=== PATIENT | female | born 1990 | race Caucasian/White ===

== ENCOUNTER 2019-01-18 14:12 | Emergency (ER) | payer BC, OTHER ==
[2019-01-18 14:25] VITALS: BP 143/91
--- NOTE | 2019-01-18 15:15 | ER Document Report ---
ED Medical Screen (RME) - General Chief Complaint: Suicidal Ideation Stated Complaint: SUICIDAL IDEATION Time Seen by Provider: 01/18/19 15:12 Mode of Arrival: Ambulatory Information source: Patient Notes: 28-year-old female presented to ED for suicidal thoughts and started having a plan at midnight last night. She states she was planning to cut her wrist. She states she has had thoughts of suicide since she was 17. She is alert oriented respirations regular and unlabored at this time. She does have a history of high blood pressure and migraines. She denies smoking drinking or use of drugs and she lives with her family. She is accompanied by mobile crisis. I have greeted and performed a rapid initial assessment of this patient. A comprehensive ED assessment and evaluation of the patient, analysis of test results and completion of medical decision making process will be conducted by an additional ED providers. - Related Data Allergies/Adverse Reactions: No Known Allergies Allergy (Verified 01/18/19 15:11) Past Medical History - Past Medical History Cardiac Medical History: Reports: Hx Hypertension Neurological Medical History: Reports: Hx Migraine Renal/ Medical History: Reports: Hx Ovarian Cysts. Denies: Hx Peritoneal Dialysis Psychiatric Medical History: Reports: Hx Anxiety, Hx Depression, Hx Post Traumatic Stress Disorder Past Surgical History: Reports: Hx Orthopedic Surgery - back fracture Physical Exam - Vital signs Vitals: Temp Pulse Resp BP Pulse Ox 98.5 F 90 18 143/91 H 98 01/18/19 14:24 01/18/19 14:24 01/18/19 14:24 01/18/19 14:24 01/18/19 14:24 Course - Vital Signs Vital signs: Temp Pulse Resp BP Pulse Ox 98.5 F 90 18 143/91 H 98 01/18/19 14:24 01/18/19 14:24 01/18/19 14:24 01/18/19 14:24 01/18/19 14:24
[2019-01-18 16:42] LABS: ABSOLUTE EOSINOPHILS # (AUTO) 0.1 10^3/uL (0.0-0.6); ABSOLUTE LYMPHOCYTES (AUTO) 2.6 10^3/uL (0.5-4.7); ABSOLUTE MONOCYTES (AUTO) 0.5 10^3/uL (0.1-1.4); ABSOLUTE NEUT (AUTO) 2.7 10^3/uL (1.7-8.2); BASOPHILS % (AUTO) 0.6 % (0-2); EOSINOPHILS % (AUTO) 1.6 % (0-6); HEMATOCRIT 43.4 % (36.0-47.0); HEMOGLOBIN 14.7 g/dL (12.0-15.5); LYMPHOCYTES % (AUTO) 43.8 % (13-45); MEAN CORPUSCULAR HEMOGLOBIN 28.9 pg (27.0-33.4); MEAN CORPUSCULAR VOLUME 85 fl (80-97); MONOCYTES % (AUTO) 8.6 % (3-13); PLATELET COUNT 273 10^3/uL (150-450); RED CELL DISTRIBUTION WIDTH 13.9 % (11.5-14.0); SEGMENTED NEUTROPHILS % (AUTO) 45.4 % (42-78); TOTAL CELLS COUNTED % (AUTO) 100 %
[2019-01-18 17:01] LABS: APPEARANCE,URINE SLIGHTLY-CLOUDY; BILIRUBIN,URINE NEGATIVE (NEGATIVE); COLOR,URINE YELLOW; GLUCOSE, URINE NEGATIVE (NEGATIVE); KETONES,URINE NEGATIVE (NEGATIVE); LEUKOCYTE ESTERASE,URINE TRACE (NEGATIVE); NITRITE,URINE NEGATIVE (NEGATIVE); PROTEIN,URINE 100 mg/dL (NEGATIVE); URINE SPECIFIC GRAVITY 1.025
[2019-01-18 17:03] LABS: ALBUMIN 4.2 g/dL (3.5-5.0); ALKALINE PHOSPHATASE 71 U/L (38-126); ANION GAP 10 (5-19); ASPARTATE AMINO TRANSFERASE 33 U/L (14-36); BILIRUBIN,DIRECT 0.1 mg/dL (0.0-0.4); BILIRUBIN,TOTAL 0.9 mg/dL (0.2-1.3); BLOOD UREA NITROGEN 12 mg/dL (7-20); CALCIUM 9.5 mg/dL (8.4-10.2); CARBON DIOXIDE 31 mmol/L (22-30); CHLORIDE 97 mmol/L (98-107); GLUCOSE 98 mg/dL (75-110); POTASSIUM 3.1 mmol/L (3.6-5.0)
[2019-01-18 17:04] LABS: ACETAMINOPHEN < 10 ug/mL (10-30); ALCOHOL < 10 mg/dL (NONE DETECTED); SALICYLATE < 1.0 mg/dL (2.0-20.0)
[2019-01-18 17:14] LABS: URINE AMPHETAMINES SCREEN NEGATIVE; URINE BARBITURATES SCREEN NEGATIVE; URINE BENZODIAZEPINES SCREEN NEGATIVE; URINE COCAINE SCREEN NEGATIVE; URINE MARIJUANA (THC) SCREEN NEGATIVE; URINE METHADONE SCREEN NEGATIVE; URINE PHENCYCLIDINE SCREEN NEGATIVE
[2019-01-18] MEDS ORDERED: DIPH/PERTUSS(ACELL)/TETANUS VAC/PF 0.5 ML SYR (>=10YO) IM ONE (17:22)
--- NOTE | 2019-01-18 23:18 | EKG REPORT ---
SEVERITY:- NORMAL ECG - SINUS RHYTHM : Confirmed by: Nancy Sam MD 18-Jan-2019 23:17:41
--- NOTE | 2019-01-19 00:18 | ER Document Report ---
Entered by CHAVA ROJAS SCRIBE 01/18/19 [id number] Acting as scribe for:KISHAN VASQUEZ, DO ED Psych Disorder / Suicide <MARY ALICE BELLA - Last Filed: 01/18/19 17:35> - General Mode of Arrival: Ambulatory Information source: Patient TRAVEL OUTSIDE OF THE [place] IN LAST 30 DAYS: No <KISHAN VASQUEZ - Last Filed: 01/19/19 00:18> - General Chief Complaint: Suicidal Ideation Stated Complaint: SUICIDAL IDEATION Time Seen by Provider: 01/18/19 15:12 Primary Care Provider: [facility] [Outside] - Follow up as needed Notes: Patient is a 28-year-old female who presents to the emergency department today with complaints of suicidal ideation. 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 Patient has multiple superficial self-inflicted lacerations to her left wrist. Patient states she has been admitted in the past for suicidal ideation. Patient states her last tetanus shot was about 10 years ago. (KISHAN VASQUEZ) - Related Data Allergies/Adverse Reactions: No Known Allergies Allergy (Verified 01/18/19 15:11) Past Medical History - General Information source: Patient - Social History Smoking Status: Never Smoker Cigarette use (# per day): No Chew tobacco use (# tins/day): No Frequency of alcohol use: None Drug Abuse: None Lives with: Family Family History: Reviewed & Not Pertinent Patient has suicidal ideation: Yes Patient has homicidal ideation: No - Past Medical History Cardiac Medical History: Reports: Hx Hypertension Neurological Medical History: Reports: Hx Migraine Renal/ Medical History: Reports: Hx Ovarian Cysts Psychiatric Medical History: Reports: Hx Anxiety, Hx Depression, Hx Post Traumatic Stress Disorder Past Surgical History: Reports: Hx Orthopedic Surgery - back fracture <KISHAN VASQUEZ - Last Filed: 01/19/19 00:18> Review of Systems - Review of Systems Constitutional: No symptoms reported EENT: No symptoms reported Cardiovascular: No symptoms reported Respiratory: No symptoms reported Gastrointestinal: No symptoms reported Genitourinary: No symptoms reported Female Genitourinary: No symptoms reported Musculoskeletal: No symptoms reported Skin: See HPI, Other - superficial lacerations to left wrist Hematologic/Lymphatic: No symptoms reported Neurological/Psychological: See HPI, Suicidal ideation -: Yes All other systems reviewed and negative <KISHAN VASQUEZ - Last Filed: 01/19/19 00:18> Physical Exam - Vital signs Interpretation: Normal - General General appearance: Appears well, Alert - HEENT Head: Normocephalic, Atraumatic Eyes: Normal Pupils: PERRL - Respiratory Respiratory status: No respiratory distress Chest status: Nontender Breath sounds: Normal Chest palpation: Normal - Cardiovascular Rhythm: Regular Heart sounds: Normal auscultation Murmur: No - Abdominal Inspection: Normal Distension: No distension Bowel sounds: Normal Tenderness: Nontender Organomegaly: No organomegaly - Back Back: Normal, Nontender - Extremities General upper extremity: Nontender, Normal color, Normal ROM, Normal temperature General lower extremity: Normal inspection, Nontender, Normal color, Normal ROM, Normal temperature, Normal weight bearing. No: Ludmila's sign Shoulder: Normal Arm: Normal Elbow: Normal Forearm: Laceration, Other - Multiple superficial lacerations in linear pattern horizontally to left forearm - Neurological Neuro grossly intact: Yes Cognition: Normal Orientation: AAOx4 Hanson Coma Scale Eye Opening: Spontaneous Edin Coma Scale Verbal: Oriented Edin Coma Scale Motor: Obeys Commands Hanson Coma Scale Total: 15 Speech: Normal Motor strength normal: LUE, RUE, LLE, RLE Sensory: Normal - Psychological Associated symptoms: Flat affect - Skin Skin Temperature: Warm Skin Moisture: Dry Skin Color: Normal <KISHAN VASQUEZ - Last Filed: 01/19/19 00:18> - Vital signs Vitals: Temp Pulse Resp BP Pulse Ox 98.5 F 90 18 143/91 H 98 01/18/19 14:24 01/18/19 14:24 01/18/19 14:24 01/18/19 14:24 01/18/19 14:24 Course - Laboratory Result Diagrams: 01/18/19 16:15 01/18/19 16:15 <MARY ALICE EBLLA - Last Filed: 01/18/19 17:35> - Laboratory Result Diagrams: 01/18/19 16:15 01/18/19 16:15 <KISHAN VASQUEZ - Last Filed: 01/19/19 00:18> - Re-evaluation Re-evalutation: 01/18 Patient is a 28-year-old female with a history of depression and suicidal ideation who comes in today with suicidal ideation and self-inflicted lacera tions to her left forearm. Blood work is benign. Urine within normal limits. No evidence for overdose today. Patient is medically stable and has a bed at [facility]. She will be picked up by a sales representative sales manager from there and taken to a bed. She is agreeable to this plan and voluntary at this time. Stable for discharge home with escort to [facility]. Of note, patient is not and tetanus has been updated. (KISHAN VASQUEZ) - Vital Signs Vital signs: Temp Pulse Resp BP Pulse Ox 98.5 F 90 18 143/91 H 98 01/18/19 14:24 01/18/19 14:24 01/18/19 14:24 01/18/19 14:24 01/18/19 14:24 - Laboratory Laboratory results interpreted by me: 01/18/19 01/18/19 16:15 16:18 Potassium 3.1 L Chloride 97 L Carbon Dioxide 31 H Urine Protein 100 H Urine Urobilinogen 2.0 H Ur Leukocyte Esterase TRACE H Salicylates < 1.0 L Acetaminophen < 10 L Discharge <MARY ALICE BELLA - Last Filed: 01/18/19 17:35> <KISHAN VASQUEZ - Last Filed: 01/19/19 00:18> - Discharge Clinical Impression: Self mutilating behavior, Suicidal ideation Depression Qualifiers: Depression Type: unspecified Qualified Code(s): F32.9 - Major depressive disorder, single episode, unspecified Condition: Stable Disposition: HOME, SELF-CARE Additional Instructions: You have been evaluated by both medical and behavioral health providers while in the emergency department. You have been cleared from both acute medical and psychiatric services. [facility] involved both the [facility] and [facility] team who has all coordinated so that you will go directly to the [facility] for voluntary mental health inpatient treatment. The facility provided transportation around 1900 from the emergency department directly to their facility. DEPRESSION: Your evaluation reveals that you have mental depression. While symptoms may be vague, they often include disturbance of sleep, fatigue, loss of appetite, and general loss of interest in life. While depression may be a side effect of drugs, or a reaction to a major change in your life, many cases have no known cause. If depression is acute, and related to a major loss in your life, you can expect it to clear completely with time. If you have been depressed a long time, are prone to repeated bouts of depression or low mood, or have been thinking of suicide, get help. Depression can be treated with anti-depressant medication and counselling. Long-term depression will often take a few weeks to clear, even with appropriate medication. Follow-up care is important. SUICIDAL IDEATION: (also self injurious/mutilating behavior) Suicidal ideation is a common medical term for thoughts about suicide, which may be as detailed as a formulated plan, without the suicidal act itself. Although most people who undergo suicidal ideation do not commit suicide, some go on to make suicide attempts. The range of suicidal ideation varies greatly from fleeting to detailed planning, role playing, and unsuccessful attempts. While thoughts about suicide are common, most people do not carry out serious actions to commit suicide. Based upon your evaluation and discussion with you, we do not believe you are currently at risk to act upon your thoughts of suicide. You have agreed to return to the Emergency Department, at any time, if you feel inclined to act upon your suicidal thoughts. FOLLOW-UP CARE: You reached out to [facility] seeking help for cutting behaviors and suicidal ideation. They provided initial linkage to [facility] and then to [facility] for medical clearance. If you experience worsening or a significant change in your symptoms, notify the physician immediately, utilize mobile crisis or return to the Emergency Department at any time for re-evaluation. Referrals: [facility] [Outside] - Follow up as needed I personally performed the services described in the documentation, reviewed and edited the documentation which was dictated to the scribe in my presence, and it accurately records my words and actions.
--- NOTE | 2019-01-20 21:17 | PSYCHOLOGICAL NOTE ---
Psych Note - Psych Note Date seen by psych provider: 01/18/19 Time seen by psych provider: 15:17 - ERIC ORTIZ collateral at 1517. Psych Note: Presenting Problem: ERIC ORTIZ ([place]) brought patient to ED for hx SIB with recent cutting (up and down both arms and thighs), is typically ritualistic with the cutting and sanitary, cut deeper today than usual, has SI with plan to cut wrist tonight at work, has access to box sorter at work and can disappear to the bathroom (is known to do so), has had depression since age 17, had 4 previous SI attempts, has been to [facility] twice (September and May) this year, goes to [facility] for medication management and has a big list she is prescribed. He next appointment with [facility] is Monday but patient did not feel she could wait. She was doing therapy but therapist left, patient tried a different therapist but it was not a good fit. Patient wants help and willing to go to [facility]. ERIC ORTIZ brought patient to the ED because she said with active SI Cheryl has previously said there has to be a 24 hour period and clearance. at bedside and part of plan of care. [facility] team CM contacted [facility] immediately, spoke to them, they said since patient wants help they will take her and can take her by [phone] with their transportation able to come at 1900. Diagnosis: SIB/SI Bipolar Disorder Impression/Plan: Patient is cleared from acute psychiatric services. ERIC ORTIZ involved and [facility] has accepted her to voluntary inpatient hospitalization. [facility] will provide transportation around 1900. Consulted with Dr. Mascorro regarding the management and care of patient. ED physician in agreement with recommendations.
== END 2019-01-18 19:15 | disposition home or self-care (01) ==
LOC: ER 14:12
DX: S61.512A Laceration without foreign body of left wrist, initial encounter (principal); F32.9 Major depressive disorder, single episode, unspecified; X83.8XXA Intentional self-harm by other specified means, initial encounter; I10 Essential (primary) hypertension
CPT/HCPCS: 36415; 80053; 80307; 81001; 84703; 85025; 90471; 90715; 93005; 93010; 99285